=== PATIENT | male | born 1990 | race Caucasian/White ===

== ENCOUNTER 2018-02-04 11:15 | Emergency (ER) | payer SELFPAY ==
[2018-02-04 11:44] VITALS: BP 120/73; PULSE 72; RESP 16; TEMP 98.9; O2SAT 100
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
--- NOTE | 2018-02-04 16:17 | PD ---
HPI Chief Complaint: Psychiatric Symptoms Time Seen by Provider: 15:52 Travel History International Travel<30 days: No Contact w/Intl Traveler<30days: No Traveled to known affect area: No History of Present Illness HPI 27-year-old male presents to the emergency department transfer from [facility] for psychiatric evaluation. The patient was placed under Ricardo act there. The patient has been already medically cleared by the physician at [facility]. Upon my exam, the patient is already been seen and evaluated by our psychiatrist. The Ricardo act has been lifted. The psychiatrist did strongly recommend he stay voluntary for psychiatric admission , but the patient declined. I spoke to the psychiatrist myself he states the patient can be safely discharged. The patient denies any suicidal or homicidal ideation to me. He has history PTSD. He states that he will say things when he is intoxicated. Moderate severity. PFSH Past Medical History Medical History: Denies Significant Hx Diminished Hearing: No Immunizations Current: Yes ?: Not Past Surgical History Surgical History: No Previous Surgery Social History Alcohol Use: Yes (750 ml shanda johnson PER NIGHT) Tobacco Use: Yes (1 PPD) Substance Use: No (HX METH, POLYSUBSTANCE) Allergies-Medications (Allergen,Severity, Reaction): Coded Allergies: No Known Allergies (Verified Allergy, Unknown, 02/04/18) Reported Meds & Prescriptions Reported Meds & Active Scripts Active No Active Prescriptions or Reported Medications Review of Systems Except as stated in HPI: all other systems reviewed are Neg Physical Exam Narrative GENERAL: Well-nourished, well-developed male patient, afebrile. SKIN: Focused skin assessment warm/dry. HEAD: Normocephalic. Atraumatic. EYES: No scleral icterus. No injection or drainage. NECK: Supple, trachea midline. No JVD or lymphadenopathy. CARDIOVASCULAR: Regular rate and rhythm without murmurs, gallops, or rubs. RESPIRATORY: Breath sounds equal bilaterally. No accessory muscle use. Lung sounds are clear to auscultation. GASTROINTESTINAL: Abdomen soft, non-tender, nondistended. MUSCULOSKELETAL: No cyanosis, or edema. PSYCHIATRIC: No delusional thought processes. No hallucinations. Data Data Last Documented VS Vital Signs Date Time Temp Pulse Resp B/P (MAP) Pulse Ox O2 Delivery O2 Flow Rate FiO2 02/04/18 14:50 (89) 02/04/18 11:44 98.9 72 16 100 Room Air MDM Medical Decision Making Medical Screen Exam Complete: Yes Emergency Medical Condition: Yes Medical Record Reviewed: Yes Differential Diagnosis Depression versus anxiety versus PTSD versus alcohol dependence Narrative Course 27-year-old male presents to the emergency department under Ricardo act, already cleared by [facility]. Her psychiatrist has seen and lifted the Ricardo act. The patient is requesting to go home. He denies any suicidal ideation to me. Diagnosis Primary Impression: Chronic post-traumatic stress disorder (PTSD) Additional Impression: Alcohol dependence Qualified Codes: F10.29 - Alcohol dependence with unspecified alcohol-induced disorder Referrals: Psychiatrist call for appointment Patient Instructions: Alcohol Dependence (ED), General Instructions, Post Traumatic Stress Disorder (ED) Additional Instructions: Follow-up with a psychiatrist. Return to the emergency department for any acute worsening of symptoms Med/Other Pt SpecificInfo: No Change to Meds Scripts No Active Prescriptions or Reported Meds Disposition: 01 DISCHARGE HOME Condition: Stable Fabi Carrizales Feb 04, 2018 16:17
== END 2018-02-04 17:14 | disposition home or self-care (01) ==
LOC: NEPJ 11:15
DX: F43.12 Post-traumatic stress disorder, chronic (principal); F10.29 Alcohol dependence with unspecified alcohol-induced disorder; F17.200 Nicotine dependence, unspecified, uncomplicated
CPT/HCPCS: 99284